=== PATIENT | male | born 2000 | race Two or more races ===

== ENCOUNTER 2023-03-06 02:41 | Emergency (ER) | payer OTHER ==
[~2023-03-06] VITALS: Ht 160 cm; Wt 68.0 kg
[2023-03-06] MEDS ORDERED: HUMALOG100 UNIT/2 (02:50)
[2023-03-06] MEDS ORDERED: LANTUS SOL100 UNIT/1 (02:50)
[2023-03-06 03:59] LABS: HEMOGLOBIN 16.2 g/dL (13-16.00); MEAN CELL VOLUME 83.1 fL (80.0-100.00); MEAN CORPUSCULAR HEMOGLOBIN 28.7 pg (27.00-32.0); MEAN CORPUSCULAR HGB CONC 34.6 g/dl (32.0-36.0); PLATELET COUNT 320 K/uL (150-450); RED BLOOD COUNT 5.65 M/uL (4.00-6.00); RED CELL DISTRIBUTION WIDTH 13.3 % (11.5-14.5)
[2023-03-06 04:06] LABS: CALCIUM 8.5 mg/dL (8.5-10.1); CREATININE SERUM 0.92 mg/dL (0.70-1.30); GFR 103.85; POTASSIUM 3.83 mEq/L (3.5-5.1)
== END 2023-03-06 07:14 | disposition home or self-care (01) ==
LOC: ER 02:41
DX: K31.84 Gastroparesis (principal); R11.10 Vomiting, unspecified; K29.70 Gastritis, unspecified, without bleeding; E11.9 Type 2 diabetes mellitus without complications; Z79.4 Long term (current) use of insulin